=== PATIENT | female | born 1940 | race African-American/Black ===

== ENCOUNTER 2016-10-30 08:51 | Day surgery (SDC) | payer OTHER ==
[2016-10-30] MEDS ORDERED: TETRACAINE 0.5% OPHTH 1 DOSE AFFEYE ONE ×2 (11:00→11:45)
[2016-10-30] MEDS ORDERED: ALPHAGAN-P OPHTH 1 DOSE AFFEYE ONE (11:01)
[2016-10-30 11:02] VITALS: BP 192/87
== END 2016-10-30 12:07 | disposition home or self-care (01) ==
LOC: SURG1 08:51
PROVIDERS: ATTEND Ophthalmology
PROC: 08QC3ZZ Repair Right Iris, Percutaneous Approach (ICD-10-PCS; principal; 2016-10-30 17:30)
DX: H40.10X1 Unspecified open-angle glaucoma, mild stage (principal)
CPT/HCPCS: 65855

== ENCOUNTER 2016-12-04 13:10 | Day surgery (SDC) | payer OTHER ==
[2016-12-04] MEDS ORDERED: TETRACAINE 0.5% OPHTH 1 DOSE AFFEYE ONE ×2 (13:45→15:35)
[2016-12-04] MEDS ORDERED: ALPHAGAN-P OPHTH 1 DOSE AFFEYE ONE (13:45)
[2016-12-04 16:21] VITALS: BP 148/81
== END 2016-12-04 15:52 | disposition home or self-care (01) ==
LOC: SURG1 13:10
PROVIDERS: ATTEND Ophthalmology
PROC: 08QC3ZZ Repair Right Iris, Percutaneous Approach (ICD-10-PCS; principal; 2016-12-04 05:30)
DX: H40.10X1 Unspecified open-angle glaucoma, mild stage (principal)
CPT/HCPCS: 65855

== ENCOUNTER 2016-12-25 08:07 | Day surgery (SDC) | payer OTHER ==
[2016-12-25] MEDS ORDERED: TETRACAINE 0.5% OPHTH 1 DOSE AFFEYE ONE ×2 (09:00→10:57)
[2016-12-25] MEDS ORDERED: VIGAMOX 0.5% OPHTH 1 DOSE AFFEYE ONE ×5 (09:01→11:27)
[2016-12-25] MEDS ORDERED: PROLENSA OPHTH 1 DOSE AFFEYE ONE (09:12)
[2016-12-25] MEDS ORDERED: ALPHAGAN-P OPHTH 1 DOSE AFFEYE ONE (09:13)
[2016-12-25] MEDS ORDERED: AK-DILATE 2.5% OPHTH 1 DOSE OP ONE ×4 (09:14→09:17)
[2016-12-25] MEDS ORDERED: CYCLOGYL 1% OPHTH 1 DOSE OP ONE ×4 (09:14→09:17)
[2016-12-25] MEDS ORDERED: MYDRIACIL OPHTH 1 DOSE AFFEYE ONE ×4 (09:14→09:17)
[2016-12-25] MEDS ORDERED: NS 500 ML IV 500 ML IV ONE (09:33)
[2016-12-25] MEDS ORDERED: BSS OPHTH (PLAIN) 500 ML with VANCOMYCIN HCL 500 MG VIAL 25 MG, ADRENALINE CHL INJ 1 MG IR ONE ×6 (10:57)
[2016-12-25] MEDS ORDERED: BETADINE OPHTH SOLN 5% EACHEYE ONE (10:58)
[2016-12-25] MEDS ORDERED: XYLOCAINE-MPF 1% IJ ONE ×2 (11:01→11:14)
[2016-12-25] MEDS ORDERED: ADRENALINE CHL INJ IJ ONE ×2 (11:01→11:14)
[2016-12-25] MEDS ORDERED: DUOVISC IO ONE ×2 (11:02→11:14)
[2016-12-25 11:55] VITALS: BP 170/79
== END 2016-12-25 11:50 | disposition home or self-care (01) ==
LOC: SURG1 08:07
PROVIDERS: ATTEND Ophthalmology
PROC: 08RJ3JZ Replacement of Right Lens with Synthetic Substitute, Percutaneous Approach (ICD-10-PCS; principal; 2016-12-25 14:15)
PROC: 08DJ3ZZ Extraction of Right Lens, Percutaneous Approach (ICD-10-PCS; principal; 2016-12-25 14:15)
DX: H25.11 Age-related nuclear cataract, right eye (principal); H25.011 Cortical age-related cataract, right eye; H52.221 Regular astigmatism, right eye
CPT/HCPCS: 99100; A4217; J0170; J3370